=== PATIENT | male | born 1965 | race Caucasian/White ===

== ENCOUNTER → 2017-01-04 09:53 | Outpatient (CLI) | payer MEDICARE | END | disposition home or self-care (01) | LOC: D.CT 09:53 | DX: R59.0 Localized enlarged lymph nodes (principal) ==

== ENCOUNTER → 2017-08-25 10:10 | Outpatient (CLI) | payer MEDICARE | END | disposition home or self-care (01) | LOC: D.CT 08-12 09:30 | DX: N28.89 Other specified disorders of kidney and ureter (principal) ==